=== PATIENT | male | born 1950 | race Caucasian/White ===

== ENCOUNTER 2017-03-03 08:57 | Inpatient (IN) ==
--- NOTE | 2017-03-03 10:24 | History & Physical Report ---
Date of Encounter: 03/03/17 Time of Encounter: 10:23 24 Hour HP Update - Instructions Instructions: If the History and Physical is less than 30 days old and was completed prior to A.M. admission and or procedure and has NOT been updated on calendar day of procedure please complete this update prior to performing procedure. - Update Patient reports changes in Medical Condition: No Changes in examination, assessment, or condition: No Changes in Medication: No - Attending Attestation Pt admitted for Rythmol initiation for A-Fib. Last seen by Dr. Damon nOeal as outpt. Please use this eCW encounter as full H&P. Pt reports exertional dyspnea with A-Fib, denies chest pain or dyspnea. Recent negative stress test 01/28/17, gated EF 53%. Echo 02/15/16 EF 50%, moderately dilated left atrium, no significant valvular dysfunction. Hx of A-Flutter ablation 01/2016. Will initiate Rythmol at 150mg [id number]. Obtain daily EKGs to monitor QRS. Will need monitored for 5 doses. Anticoagulated on Eliquis with no missed doses in the past 30 days. Check BMP and CBC.
[2017-03-03 10:56] LABS: Basophils % 0.5 %; Eosinophils # 0.1 K/mcL (0.0-0.6); Eosinophils % 1.4 %; Hematocrit 41.6 % (37.5-50.1); Hemoglobin 13.3 g/dL (12.9-16.9); Immature Granulocytes % 0.5 % (0-4); Lymphocytes % 22.4 %; Mean Corpuscular Hemoglobin 25.5 pg (28.0-33.3); Mean Corpuscular Volume 79.7 fL (83.0-100.0); Mean Platelet Volume 11.1 fL (9.4-12.4); Monocytes # 0.8 K/mcL (0.0-1.3); Monocytes % 8.9 %; Neutrophils # 5.8 K/mcL (1.6-8.9); Platelet Count 246 K/mcL (140-400); Red Blood Count 5.22 M/mcL (4.19-5.50); Red Cell Distribution Width 13.6 % (11.5-14.5); Segmented Neutrophils % 66.3 %
[2017-03-03 11:14] LABS: BUN/Creatinine Ratio 20 (6-26); Blood Urea Nitrogen 25 mg/dL (8-26); Carbon Dioxide 25 mEq/L (19-29); Chloride 106 mEq/L (98-109); Glucose 105 mg/dL (70-99); Osmolality,Calculated 295 (280-300); Potassium 3.7 mEq/L (3.5-4.5); Sodium 140 mEq/L (136-145); eGFR For African Americans > 60 (> 60); eGFR For Non-African Americans 56 (> 60)
[2017-03-03] MEDS: Diltiazem CD (24hr) 240 MG CAPSULE PO SCH (12:07)
--- NOTE | 2017-03-03 16:36 | Electrocardiograph Report ---
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
[2017-03-03] MEDS: APIXABAN 5 MG TABLET PO SCH (22:10)
[2017-03-04] MEDS: (Omega-3/Dha/Epa/Fish Oil [Fish Oil 1,000 Mg Softgel]) PO SCH (08:12)
[2017-03-04] MEDS: Aspirin 81 MG TAB.CHEW PO SCH (08:13)
[2017-03-04] MEDS: Diltiazem CD (24hr) 240 MG CAPSULE PO SCH (08:13)
[2017-03-04] MEDS: APIXABAN 5 MG TABLET PO SCH ×2 (08:13→22:10)
[2017-03-04] MEDS: Fenofibrate 54 MG TABLET PO SCH (08:13)
[2017-03-04] MEDS ORDERED: Diltiazem CD (24hr) 240 MG CAPSULE PO SCH (09:00)
--- NOTE | 2017-03-04 09:40 | Cardiology Progress Note ---
Date of Encounter: 03/04/17 Time of Encounter: 09:36 Assessment and Plan (1) A-fib Current Visit: Yes Status: Chronic Admitted for symptomatic A-Fib, direct admission for Rythmol initiation--150mg X3wvyle in attempt to restore sinus rhythm. Pt has received 3 doses of Rythmol--remains in A-Fib, rate controlled. Baseline EKG QRS 113ms. EKG 03/04/17 s/p 3 doses, QRS stable at 115ms. Will monitor daily EKGs. Pt needs monitored for 5 doses. 5th dose will be 10PM tonight. If still in A-Fib tomorrow AM will proceed with ROHAN/DCCV. Pt admits to missing 1 -2 doses of Eliquis in the past month, so ROHAN is warranted. R/B/A discussed. Qualifiers: Atrial fibrillation type: persistent Qualified Code(s): I48.1 - Persistent atrial fibrillation (2) Encounter for monitoring anti-arrhythmic therapy Current Visit: Yes Status: Acute As above. Discussion w patient/family: The assessment and plan as outlined above was discussed with the patient and/or family members who expressed understanding and agreement. All questions were answered. Thank you for involving us in the care of your patient. Please call with any questions. I will discuss all the above with Dr. Damon Oneal and make changes as necessary. Subjective Principal diagnosis: A-Fib Interval history: Admitted for Rythmol initiation--150mg [id number]. Pt has received 3 doses, remains in A-Fib. Denies any complaints this AM. Objective Vital Signs, Last 4 Hours Temp Pulse Resp BP Pulse Ox 03/04/17 07:05 98.1 F 83 15 130/77 97 Vital Signs Temp Pulse Resp BP Pulse Ox 03/04/17 07:05 98.1 F 83 15 130/77 97 03/04/17 04:47 98.5 F 97 16 130/85 96 03/04/17 00:37 98.3 F 90 16 124/80 95 03/03/17 22:07 88 16 129/88 96 03/03/17 19:49 97.7 F 93 16 120/89 97 03/03/17 15:11 97.5 F L 94 99 136/78 03/03/17 10:59 97.7 F 103 16 135/87 98 03/03/17 10:04 98.1 F 95 16 126/79 98 Intake and Output 03/03/17 03/04/17 03/04/17 23:59 07:59 15:59 Intake Total 240 / 240 50 / 50 Output Total 0 / 0 Balance 240 / 240 50 / 50 Intake: Oral 240 / 240 50 / 50 Output: Urine 0 / 0 Other: Meal Dinner Percent of Meal Consumed 100% # Voids 0 1 Weight 93.6 kg Patient Weight 03/04/17 23:59 Weight 93.6 kg General: Conversant, No Apparent Distress HEENT: Atraumatic, Normocephaly, Mucus Membranes Moist Neck: No JVD, Normal carotid pulses Cardiac: Other (irregularly irregular) Lungs: Normal Breath Sounds, No Wheeze, Rales, Rhonchi Neuro: Alert and responsive, No focal deficits noted Abdomen: Soft, Non-Tender Skin: No rashes noted on visualized skin Musculoskeletal: No Chest Wall Tenderness Extremities: No Clubbing, No Cyanosis, No Edema, Normal Pulses Results 03/03/17 10:41 03/03/17 10:41 Lab Results 03/03/17 03/03/17 10:41 10:41 WBC 8.7 Hgb 13.3 Hct 41.6 Plt Count 246 Sodium 140 Potassium 3.7 Chloride 106 Carbon Dioxide 25 BUN 25 Creatinine 1.28 H Glucose 105 H Calcium 10.0 Short CBC 03/03/17 Range/Units 10:41 WBC 8.7 (4.3-11.1) K/mcL Hgb 13.3 (12.9-16.9) g/dL Hct 41.6 (37.5-50.1) % Plt Count 246 (140-400) K/mcL Neutrophils # 5.8 (1.6-8.9) K/mcL BMP 03/03/17 Range/Units 10:41 Sodium 140 (136-145) mEq/L Potassium 3.7 (3.5-4.5) mEq/L Chloride 106 (98-109) mEq/L Carbon Dioxide 25 (19-29) mEq/L BUN 25 (8-26) mg/dL Creatinine 1.28 H (0.72-1.25) mg/dL Glucose 105 H (70-99) mg/dL Calcium 10.0 (8.6-10.8) mg/dL Active Medications Apixaban (Eliquis) 5 mg PO BID DELORIS Stop: 09/02/17 21:01 Last Admin: 03/04/17 08:13 Dose: 5 mg Aspirin (Aspirin) 81 mg PO DAILY [facility]OR[facility] Stop: 09/03/17 09:01 Last Admin: 03/04/17 08:13 Dose: 81 mg Atorvastatin Calcium (Lipitor) 40 mg PO DAILY [facility] Stop: 09/03/17 09:01 Last Admin: 03/04/17 08:13 Dose: 40 mg Diltiazem HCl (Cardizem Cd) 240 mg PO DAILY [facility] Stop: 09/02/17 11:04 Last Admin: 03/04/17 08:13 Dose: 240 mg Fenofibrate (Tricor) 162 mg PO DAILY [facility] Stop: 09/03/17 09:01 Last Admin: 03/04/17 08:13 Dose: 162 mg Lisinopril/HCTZ (Prinzide 10-12.5) 2 each PO DAILY [facility] Stop: 09/03/17 09:01 Last Admin: 03/04/17 08:13 Dose: 2 each Pharmacy Profile Note (Patient Taking Own Medication) 0 each PO DAILY [facility]OR[facility] Stop: 09/03/17 09:01 Last Admin: 03/04/17 08:12 Dose: Not Given Propafenone HCl (Rhythmol) 150 mg PO Q8H [facility] Stop: 09/02/17 14:01 Last Admin: 03/04/17 06:22 Dose: 150 mg - Imaging and Cardiology Stress Test: report reviewed Echo: report reviewed - EKG Interpretation EKG results cardiology: other (24 hour tele AVG HR 85, A-Fib) - VTE Reasons for not Prescribing Prophylaxis: Not indicated-Anticoagulated or INR therapeutic Consult Discharge Plan - Plan Referrals: Joe Garrison DO [Primary Care Provider] - 03/13/17 12:00 pm
--- NOTE | 2017-03-04 11:25 | Electrocardiograph Report ---
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
[2017-03-05 06:41] LABS: BUN/Creatinine Ratio 20 (6-26); Blood Urea Nitrogen 23 mg/dL (8-26); Calcium 9.9 mg/dL (8.6-10.8); Carbon Dioxide 23 mEq/L (19-29); Chloride 107 mEq/L (98-109); Glucose 109 mg/dL (70-99); Osmolality,Calculated 294 (280-300); Potassium 3.7 mEq/L (3.5-4.5); Sodium 140 mEq/L (136-145); eGFR For African Americans > 60 (> 60); eGFR For Non-African Americans > 60 (> 60)
[2017-03-05] MEDS: Aspirin 81 MG TAB.CHEW PO SCH (08:44)
[2017-03-05] MEDS: (Omega-3/Dha/Epa/Fish Oil [Fish Oil 1,000 Mg Softgel]) PO SCH (08:44)
[2017-03-05] MEDS: Diltiazem CD (24hr) 240 MG CAPSULE PO SCH (08:44)
[2017-03-05] MEDS: APIXABAN 5 MG TABLET PO SCH (08:44)
[2017-03-05] MEDS: Fenofibrate 54 MG TABLET PO SCH (08:44)
[2017-03-05] MEDS ORDERED: 0.9 % Sodium Chloride 500 ML IVC ONE (10:20)
[2017-03-05 10:30] VITALS: BP 131/88
[2017-03-05] MEDS ORDERED: Tetracaine/Benzocaine/Butamben 200MG/SPRAY (100SPY/BOT) MM SCH (10:30)
--- NOTE | 2017-03-05 10:43 | Electrocardiograph Report ---
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
[2017-03-05] MEDS: *HR* Midazolam HCl 5 MG/5 ML VIAL IVP PRN ×4 (11:15→11:30)
[2017-03-05] MEDS: *HR* FentaNYL (PF) 100 MCG/2 ML VIAL IVP PRN ×3 (11:15→11:30)
--- NOTE | 2017-03-05 11:43 | Discharge Summary ---
Date of Encounter: 03/05/17 Time of Encounter: 11:41 - Discharge Diagnosis (1) A-fib Priority: Primary Status: Chronic Comments: Admitted for symptomatic A-Fib, direct admission for Rythmol initiation--150mg [id number] in attempt to restore sinus rhythm. Pt has received 6 doses of Rythmol--remained in A-Fib, rate controlled. Pt underwent successful RANDOLPH/DCCV this AM--currently SR with HR 70s. Baseline EKG QRS 113ms. EKG 03/04/17 s/p 3 doses, QRS stable at 115ms. EKG s/p 6 doses QRS 116ms, stable. Anticoagulated on Eliquis. Missed doses in the past month which is why RANDOLPH was warranted. Pt being discharged home in stable condition. Follow-up with cardiology as outpt in 2 weeks. Qualifiers: Atrial fibrillation type: paroxysmal Qualified Code(s): I48.0 - Paroxysmal atrial fibrillation (2) Encounter for monitoring anti-arrhythmic therapy Priority: Primary Status: Acute Comments: As above. - Discharge Medications Prescriptions: Propafenone [Rhythmol] 150 mg PO Q8H #90 tablet Home Medications: Apixaban [Eliquis] 5 mg PO BID 04/11/16 [History] Atorvastatin [Lipitor] 40 mg PO DAILY 04/11/16 [History] Fenofibrate [Lofibra] 160 mg PO DAILY 04/11/16 [History] [place]-3/Dha/Epa/Fish Oil [Fish Oil 1,000 mg Softgel] 1 each PO DAILY 04/11/16 [ History] Diltiazem HCl [Diltiazem 24Hr Cd] 240 mg PO DAILY 05/23/16 [History] Aspirin 81 mg PO DAILY 03/03/17 [History] Lisinopril/Hydrochlorothiazide [Zestoretic 20-25 mg Tablet] 1 each PO DAILY 09/07 [History] Propafenone [Rhythmol] 150 mg PO Q8H #90 tablet 03/05/17 [Rx] Allergies/Adverse Reactions: Allergies No Known Allergies Allergy (Verified 03/28/16 07:57) Procedures/tests Complete & Pending: Procedures Performed prior 72 hours Category Date Time Status ECG 12 lead ECG [ECG] Routine Y 03/03/17 09:54 Completed EKG [ECG 12 lead ECG] [ECG] AM 0600 Y 03/04/17 06:00 Completed EKG [ECG 12 lead ECG] [ECG] AM 0600 Y 03/05/17 06:00 Completed EV randolph guided cardioversion Routine Y 03/05/17 08:04 Ordered Date of admission: 03/03/17 10:28 Primary care physician: Mehreen Beltran Discharging clinician: Alejandro Middleton Anticipated date of discharge: 03/05/17 - Patient Status Disposition: Home, Self-Care Condition: Good Functional capacity at discharge: independent ambulation Overall status at discharge: patient is back to baseline - Discharge Instructions Follow Up With: Joe Garrison DO [Primary Care Provider] - 03/13/17 12:00 pm - Diet and Activity Activity: increase activity as tolerated Diet: advance to your usual diet - Hospital Course Hospital course: Mr. Combs is a 66 year old male admitted for symptomatic A-Fib, direct admission for Rythmol initiation--150mg [id number] in attempt to restore sinus rhythm. Pt has received 6 doses of Rythmol--remained in A-Fib, rate controlled. Pt underwent successful RANDOLPH/DCCV this AM--currently SR with HR 70s. Baseline EKG QRS 113ms. EKG 03/04/17 s/p 3 doses, QRS stable at 115ms. EKG 03/05/17 s/p 6 doses QRS 116ms, stable. Anticoagulated on Eliquis. Missed doses in the past month which is why RANDOLPH was warranted. Pt being discharged home in stable condition. Follow-up with cardiology as outpt in 2 weeks. Pt denies any acute complaints. Labs and vitals stable. - Time Spent with Patient Total time spent providing and/or coordinating discharge services: 30 minutes Physical Examination Vital Signs, Last 4 Hours Temp Pulse Resp BP Pulse Ox 03/05/17 10:25 97.7 F 96 18 131/88 97 Vital Signs Temp Pulse Resp BP Pulse Ox 03/05/17 10:25 97.7 F 96 18 131/88 97 03/05/17 06:51 98.0 F 96 17 129/86 03/05/17 04:48 97.6 F 103 16 118/73 94 03/05/17 01:02 98.9 F 88 19 118/74 94 03/04/17 20:00 98.1 F 93 20 123/82 94 06/13/17 16:12 97.9 F 92 15 125/82 97 03/04/17 13:10 97 03/04/17 11:59 97.7 F 84 15 117/76 97 Intake and Output 03/04/17 03/05/17 03/05/17 23:59 07:59 15:59 Intake Total 100 / 100 Balance 100 / 100 Intake: Oral 100 / 100 Other: Meal npo # Voids 1 Weight 94 kg 93.894 kg Patient Weight 03/05/17 23:59 Weight 93.894 kg General: Conversant, No Apparent Distress HEENT: Atraumatic, Normocephaly, Mucus Membranes Moist Neck: No JVD, Normal carotid pulses Cardiac: Reg Rate and Rhythm, Normal S1 and S2, No Murmur Lungs: Normal Breath Sounds, No Wheeze, Rales, Rhonchi Neuro: Alert and responsive, No focal deficits noted Abdomen: Soft, Non-Tender Skin: No rashes noted on visualized skin Musculoskeletal: No Chest Wall Tenderness Extremities: No Clubbing, No Cyanosis, No Edema, Normal Pulses - VTE Reasons for not Prescribing Prophylaxis: Not indicated-Anticoagulated or INR therapeutic
--- NOTE | 2017-03-05 14:21 | Electrocardiograph Report ---
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
--- NOTE | 2017-03-05 19:44 | Electrocardiograph Report ---
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
== END 2017-03-05 15:50 | disposition home or self-care (01) | DRG 310 ==
LOC: 2NENU
PROVIDERS: ADMIT Internal Medicine Interventional Cardiology; ATTEND Internal Medicine Interventional Cardiology

== ENCOUNTER 2017-06-09 11:10 | Inpatient (IN) ==
--- NOTE | 2017-06-09 11:37 | Emergency Department Note ---
Disposition Clinical Impression: Atrial fibrillation with RVR, Elevated troponin Disposition: Admitted As Inpatient Condition: Fair Referrals: Joe Garrison DO [Primary Care Provider] - Forms: ED Satisfaction Letter Arrhythmia/Palpitations HPI - General Chief Complaint: ED Arrhythmia/Palpitations Stated Complaint: heart racing Time Seen by Provider: 06/09/17 11:18 Source: patient Mode of arrival: private vehicle Limitations: no limitations Nursing Notes Reviewed: Yes Vital Signs Reviewed: Yes - History of Present Illness HPI Narrative: 67-year-old male history of atrial fibrillation reports he had a prior ablation roughly [address] Oneal who presents to the ER due to elevated heart rate. Patient states that he has been checking his heart rate and blood pressure daily since the ablation. States this morning when I rechecked it was 155. He reports that he is felt otherwise normal without chest pain or shortness of breath. Denies syncope or near syncope. Denies a prior history of CAD, NE, DVT or PE. Does state he is still on his anticoagulation and A. fib meds. No other complaints. 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 Context: occurred during rest Arrhythmia History: atrial fibrillation Associated symptoms: Denies: chest pain, shortness of breath, syncope, near- syncope - Related Data Home Medications Medication Instructions Recorded Confirmed Apixaban [Eliquis] 5 mg PO BID 04/11/16 06/09/17 Atorvastatin [Lipitor] 40 mg PO DAILY 04/11/16 06/09/17 Fenofibrate [Lofibra] 160 mg PO DAILY 04/11/16 06/09/17 [place]-3/Dha/Epa/Fish Oil [Fish Oil 1 each PO DAILY 04/11/16 06/09/17 1,000 mg Softgel] Diltiazem HCl [Diltiazem 24Hr Cd] 240 mg PO DAILY 05/23/16 06/09/17 Aspirin 81 mg PO DAILY 03/03/17 06/09/17 Lisinopril/Hydrochlorothiazide 1 each PO DAILY 03/03/17 06/09/17 [Zestoretic 20-25 mg Tablet] Previous Rx's Medication Instructions Recorded Propafenone [Rhythmol] 150 mg PO Q8H #90 tablet 03/05/17 Allergies Allergy/AdvReac Type Severity Reaction Status Date / Time No Known Allergies Allergy Verified 06/09/17 11:14 All systems ED: reviewed and negative except as stated. Constitutional: Denies: fever Cardiovascular: Denies: chest pain, palpitations Respiratory: Denies: dyspnea Gastrointestinal: Denies: abdominal pain, nausea, vomiting Past Medical History - Past Medical History Attestation: Yes The following information was validated with the patient. Source: patient Medical history: Reports: atrial fibrillation, cancer, hyperlipidemia, hypertension Surgical history: Reports: herniorrhaphy, orthopedic, other, prostatectomy Psychiatric history: Reports: no psych history - Social History Smoking Status: Never smoker Smokeless Tobacco Status: No Alcohol use: Reports: occasionally Drug use: Reports: none Physical Exam - General Limitations: no limitations General appearance: alert, in no apparent distress - Head Head exam: atraumatic, normocephalic, normal inspection - Eye Eye exam: Present: normal appearance, EOMI - ENT ENT exam: normal exam - Neck Neck exam: Present: normal inspection, full ROM - Chest Chest inspection: Present: normal inspection, symmetric chest wall rise - Respiratory Respiratory exam: Present: normal lung sounds bilaterally - Cardiovascular Cardiovascular exam: Present: tachycardia, irregular rhythm, normal heart sounds - Abdominal Exam Abdominal exam: Present: soft, Non-Tender. Absent: tenderness - Extremities Exam Extremities exam: Present: normal inspection, full ROM - Expanded Upper Extremity Exam Shoulder exam: Present: normal inspection, full ROM Arm exam: Present: normal inspection, full ROM Elbow exam: Present: normal inspection, full ROM Forearm/Wrist exam: Present: normal inspection, full ROM Hand exam: Present: normal inspection, full ROM Vascular exam: Normal: radial pulse - Expanded Lower Extremity Exam Hip/Pelvis exam: Present: normal inspection, full ROM Upper leg exam: Present: normal inspection, full ROM Knee exam: Present: normal inspection, full ROM Lower leg exam: Present: normal inspection, full ROM Ankle exam: Present: normal inspection, full ROM Foot/toe exam: Present: normal inspection, full ROM Neurovascular/Tendon exam: Absent: motor deficit, sensory deficit - Neurological Exam Neurological exam: Present: alert, other (GCS 15. Nonfocal neurologic exam. Moves all extremities equally.) - Psychiatric Psychiatric exam: Present: normal affect, normal mood - Skin Skin exam: Present: warm, dry, intact, normal color Course Course Narrative: Patient seen and examined. He is tachycardic here to the 140s. Blood pressure stable. We will get an EKG, chest x-ray as well as labs including troponin and TSH. We will place him on a Cardizem bolus and drip. He will require admission to the hospital for further management. - Reevaluation(s) Reevaluation #1: Discussed results of imaging and lab work with the patient. His heart rate did go back into the 140s prior to starting the Cardizem drip. We will rebolus him on Cardizem and then start the drip. - Consultations Consultation #1: I discussed this patient with the on-call disability attorney Dr. Donaldson. Discussed patient's history, exam findings. They will see the patient in consult. We will admit the hospitalist service. Vital Signs Temperature 97.7 F 06/09/17 11:14 Pulse Rate 142 06/09/17 11:14 Respiratory Rate 20 06/09/17 11:14 Blood Pressure 125/88 06/09/17 11:14 O2 Sat by Pulse Oximetry 97 06/09/17 11:14 Temperature 97.7 F 06/09/17 11:14 Pulse Rate 142 06/09/17 11:14 Respiratory Rate 20 06/09/17 11:14 Blood Pressure 125/88 06/09/17 11:14 O2 Sat by Pulse Oximetry 97 06/09/17 11:14 Oxygen Delivery Oxygen Delivery Room Air Arrhythmia/Palpitations - [facility] Narrative Medical decision making narrative: 67-year-old male presents to the ER due to elevated heart rate. History of atrial fibrillation with ablation roughly 8 days ago. States he noticed his heart rate was 155 when he checked it this morning. He is hemodynamically stable here. EKG demonstrates A. fib with RVR. Chest x-ray unremarkable. Troponin is elevated at 0.17. He is currently anticoagulated. Case discussed with cardiology. Started on a Cardizem bolus and drip. Patient will be admitted to the hospitalist service for further management. - Lab Data Lab results reviewed: Yes I reviewed the patient's lab results. Result diagrams: 06/09/17 11:34 06/09/17 11:34 Lab Results 06/09/17 06/09/17 06/09/17 Range/Units 11:34 11:34 11:34 WBC 11.0 (4.3-11.1) K/mcL RBC 5.30 (4.19-5.50) M/mcL Hgb 13.6 (12.9-16.9) g/dL Hct 42.4 (37.5-50.1) % MCV 80.0 L (83.0-100.0) fL MCH 25.7 L (28.0-33.3) pg MCHC 32.1 (31.6-35.5) g/dL RDW 13.9 (11.5-14.5) % Plt Count 307 (140-400) K/mcL MPV 10.6 (9.4-12.4) fL Immature Gran % 0.8 (0-4) % Seg Neutrophils % 61.5 % Lymphocytes % 25.2 % Monocytes % 9.9 % Eosinophils % 2.1 % Basophils % 0.5 % Neutrophils # 6.8 (1.6-8.9) K/mcL Lymphocytes # 2.8 (0.6-4.6) K/mcL Monocytes # 1.1 (0.0-1.3) K/mcL Eosinophils # 0.2 (0.0-0.6) K/mcL Basophils # 0.1 (0.0-0.2) K/mcL Immature Plt Fraction 4.8 (1.1-6.1) % PT 12.5 H (9.4-12.1) Seconds INR 1.2 APTT 39.3 H (26.0-36.0) Seconds Sodium 139 (136-145) mEq/L Potassium 4.0 (3.5-4.5) mEq/L Chloride 108 (98-109) mEq/L Carbon Dioxide 23 (19-29) mEq/L BUN 26 (8-26) mg/dL Creatinine 1.24 (0.72-1.25) mg/dL Est GFR ( Amer) > 60 (> 60) Est GFR (Non-Af Amer) 58 L (> 60) BUN/Creatinine Ratio 21 (6-26) Glucose 99 (70-99) mg/dL Calculated Osmolality 293 (280-300) Calcium 10.4 (8.6-10.8) mg/dL Troponin I (0-0.03) ng/mL TSH 1.121 (0.350-4.840) mcIU/mL 06/09/17 Range/Units 11:34 WBC (4.3-11.1) K/mcL RBC (4.19-5.50) M/mcL Hgb (12.9-16.9) g/dL Hct (37.5-50.1) % MCV (83.0-100.0) fL MCH (28.0-33.3) pg MCHC (31.6-35.5) g/dL RDW (11.5-14.5) % Plt Count (140-400) K/mcL MPV (9.4-12.4) fL Immature Gran % (0-4) % Seg Neutrophils % % Lymphocytes % % Monocytes % % Eosinophils % % Basophils % % Neutrophils # (1.6-8.9) K/mcL Lymphocytes # (0.6-4.6) K/mcL Monocytes # (0.0-1.3) K/mcL Eosinophils # (0.0-0.6) K/mcL Basophils # (0.0-0.2) K/mcL Immature Plt Fraction (1.1-6.1) % PT (9.4-12.1) Seconds INR APTT (26.0-36.0) Seconds Sodium (136-145) mEq/L Potassium (3.5-4.5) mEq/L Chloride (98-109) mEq/L Carbon Dioxide (19-29) mEq/L BUN (8-26) mg/dL Creatinine (0.72-1.25) mg/dL Est GFR ( Amer) (> 60) Est GFR (Non-Af Amer) (> 60) BUN/Creatinine Ratio (6-26) Glucose (70-99) mg/dL Calculated Osmolality (280-300) Calcium (8.6-10.8) mg/dL Troponin I 0.17 H* (0-0.03) ng/mL TSH (0.350-4.840) mcIU/mL - Radiology Data Radiology results reviewed: Yes I reviewed the patient's radiology results. Chest X-Ray 06/09/17 11:28 IMPRESSION: No acute cardiopulmonary process. D/ / Shar Jeter MD / Shar Jeter MD Interpreting Provider: Shar Jeter MD - EKG Data EKG attestation: Yes I reviewed and interpreted this EKG. EKG results narrative: EKG demonstrates atrial fibrillation with a rate of 133. Left axis deviation. Prolonged QRS duration of 121. QTc 389. Nonspecific ST-T wave changes in lead 2, V6. No gross ST elevations or depressions. No acute ischemic findings. No significant changes from previous EKG dated 06/02/17. Carrie - Carrie Situation: Demographics, MOA Background: Presenting Complaint, Relevant PMH, Meds, & Allergies Assessment: Vital Signs, Course and respsone to treatment, Exam Concerns, Patient/Family Expectation, Pertinant Lab Results, Outstanding Labs Recommendation: Barrier(s) to disposition, Recommendation based on pending studies, treatments, or consults Carrie Report Given to: Dr. Miguelito Butler Repor Time: 13:15 Attestation Statement - Attestation Attestation: I examined this patient and my medical decision-making was reviewed with the Resident Physician. I agree with the documented findings, disposition and treatment plan as described except to the extent set forth below. Patient in the ED with a chief complaint of a high heart rate. Patient states he felt fine but he checked his heart rate today to the 150s so he thought he should be evaluated. Patient is status post cardiac ablation for atrial fibrillation 1 week ago. Denies any chest pain or difficulty breathing. Exam shows some laying in bed in no acute distress. Heart tachycardia and irregularly irregular. Plan. Cardiac workup. Cardizem drip. Has been discussed with cardiology. Troponin is elevated. Aspirin given. Likely secondary to his prolonged elevated heart rate. We will admit to medicine with cardiology consult. 40 minutes of critical care exclusive of separately little procedures.
[2017-06-09 11:41] LABS: Basophils # 0.1 K/mcL (0.0-0.2); Basophils % 0.5 %; Eosinophils # 0.2 K/mcL (0.0-0.6); Eosinophils % 2.1 %; Hematocrit 42.4 % (37.5-50.1); Hemoglobin 13.6 g/dL (12.9-16.9); Immature Granulocytes % 0.8 % (0-4); Immature Platelets 4.8 % (1.1-6.1); Lymphocytes # 2.8 K/mcL (0.6-4.6); Lymphocytes % 25.2 %; Mean Corpuscular HGB Conc 32.1 g/dL (31.6-35.5); Mean Corpuscular Hemoglobin 25.7 pg (28.0-33.3); Mean Platelet Volume 10.6 fL (9.4-12.4); Monocytes # 1.1 K/mcL (0.0-1.3); Monocytes % 9.9 %; Neutrophils # 6.8 K/mcL (1.6-8.9); Platelet Count 307 K/mcL (140-400); Red Cell Distribution Width 13.9 % (11.5-14.5); Segmented Neutrophils % 61.5 %
[2017-06-09 11:47] LABS: INR 1.2; Prothrombin Time 12.5 Seconds (9.4-12.1)
[2017-06-09 11:50] LABS: Activated Partial Thrombo Time 39.3 Seconds (26.0-36.0)
[2017-06-09 11:54] LABS: BUN/Creatinine Ratio 21 (6-26); Blood Urea Nitrogen 26 mg/dL (8-26); Calcium 10.4 mg/dL (8.6-10.8); Carbon Dioxide 23 mEq/L (19-29); Chloride 108 mEq/L (98-109); Glucose 99 mg/dL (70-99); Osmolality,Calculated 293 (280-300); Sodium 139 mEq/L (136-145); eGFR For African Americans > 60 (> 60); eGFR For Non-African Americans 58 (> 60)
[2017-06-09 12:31] LABS: Thyroid Stimulating Hormone 1.121 mcIU/mL (0.350-4.840)
--- NOTE | 2017-06-09 15:42 | Cardiology Consult Note ---
<Kymberly Brooks Diaz - Last Filed: 06/09/17 16:03> Date of Encounter: 06/09/17 Time of Encounter: 15:30 Assessment and Plan (1) A-fib Current Visit: Yes Status: Chronic Presents with atrial fibrillation/flutter with RVR, HR 140's. Currently asymptomatic. Recent successful cryoablation of atrial fib on 06/02/17. ECG shows atrial flutter 133 BPM QRS 121ms QT/QTc 311,389 ms Reports compliance with medications including rythmol and eliquis--denies missed doses since ablation or in the past 30 days. Keep NPO after MN except medications, anticipate possible DCCV in AM. Recommend EP consult, will discuss with Dr. Damon Oneal in AM. Continue cardizem gtt for rate control, titrate to keep HR less than 100. Continue rythmol and eliquis. Qualifiers: Atrial fibrillation type: paroxysmal Qualified Code(s): I48.0 - Paroxysmal atrial fibrillation (2) Elevated troponin Current Visit: Yes Status: Acute Troponin 0.17, likely secondary to demand ischemia in the setting of afib with RVR and recent ablation. No ischemic ECG changes noted, patient is chest pain free. Recent negative nuclear stress January 2017. Continue to trend troponin for a total of 3. Discussion w patient/family: The assessment and plan as outlined above was discussed with the patient and/or family members who expressed understanding and agreement. All questions were answered. Thank you for involving us in the care of your patient. Please call with any questions. The patient will be discussed and reviewed with Dr. Donaldson; changes to be made accordingly. History of Present Illness Consult date: 06/09/17 Requesting physician: David Ashley Consult reason: Afib Chief complaint: Afib History of present illness: Mr. Combs is a 67 year old male with PMHx significant for afib s/p recent cryoablation, HTN, HLD who presented to the ED with elevated heart rates. Underwent successful cryoablation of atrial fibrillation on 06/02/[address] Damon Oneal due to symptomatic PAF and failed antiarrhythmic therapy. He has underwent multiple cardioversions for afib in the past several months. He reports he has been taking his HR and BP everyday and HR have been controlled. Today, HR was elevated in the 150's which prompted ED evaluation. He denies symptoms including palpitations, fatigue, or shortness of breath. Upon arrival to ED, ECG demonstrated atrial flutter with RVR and was given IV cardizem bolus and then started on IV cardizem gtt. He reports he has not missed any doses of medications including rhythmol or eliquis. Recent CV testing: Ablation 06/02/17: successful cryoablation of atrial fibrillation Nuclear stress 01/28/17: perfusion imaging was negative for ischemia or infarct , gated EF=53% TTE 02/14/17: LVEF 50%, moderately dilated LA, normal wall motion. Past Med Surg Social Fam HX - Past Medical History Attestation: Yes The following information was validated with the patient. Source: patient Medical history: atrial fibrillation, cancer, hyperlipidemia, hypertension Psychiatric history: no psych history - Past Surgical History Surgical History: herniorrhaphy, orthopedic, other, prostatectomy, other ( cyroablation 06/02/17) - Social History Smoking Status: Never smoker Smokeless Tobacco Status: No Alcohol use: occasionally Drug use: none - Family History Mother Living Status: Still Living Hx Family Cardiac Disorders: Yes Medications and Allergies Apixaban [Eliquis] 5 mg PO BID 04/11/16 [History] Atorvastatin [Lipitor] 40 mg PO DAILY 04/11/16 [History] Fenofibrate [Lofibra] 160 mg PO DAILY 04/11/16 [History] [place]-3/Dha/Epa/Fish Oil [Fish Oil 1,000 mg Softgel] 1 each PO DAILY 04/11/16 [ History] Diltiazem HCl [Diltiazem 24Hr Cd] 240 mg PO DAILY 05/23/16 [History] Aspirin 81 mg PO DAILY 03/03/17 [History] Lisinopril/Hydrochlorothiazide [Zestoretic 20-25 mg Tablet] 1 each PO DAILY 09/07 [History] Propafenone [Rhythmol] 150 mg PO Q8H #90 tablet 03/05/17 [Rx] 3 Allergy/AdvReac Type Severity Reaction Status Date / Time No Known Allergies Allergy Verified 06/09/17 11:14 All Systems Review: A 10-system review of systems was performed and is negative for pertinent findings except as documented above in the HPI. - Cardiovascular Cardiovascular: as per HPI Physical Examination Vital Signs, Last 4 Hours Resp BP 06/09/17 14:10 18 119/70 General: Conversant, No Apparent Distress HEENT: Atraumatic Cardiac: Other (irregularly irregular) Lungs: Normal Breath Sounds Neuro: Alert and responsive Abdomen: Soft Skin: No rashes noted on visualized skin Musculoskeletal: No Chest Wall Tenderness Extremities: No Edema, Normal Pulses Results 06/09/17 11:34 06/09/17 11:34 - Imaging and Cardiology Stress Test: report reviewed Echo: report reviewed - EKG Interpretation EKG results cardiology: personally reviewed Consult Discharge Plan - Plan Referrals: Damon Oneal MD [Partnered Physician] - 06/24/17 9:15 am Joe Garrison DO [Primary Care Provider] - 06/19/17 1:30 pm <Denice Donaldson - Last Filed: 06/10/17 12:13> Date of Encounter: 06/10/17 Assessment and Plan Discussion w patient/family: The assessment and plan as outlined above was discussed with the patient and/or family members who expressed understanding and agreement. All questions were answered. Thank you for involving us in the care of your patient. Please call with any questions. History of Present Illness History of present illness: Mr. Combs is a 67 year old male All Systems Review: A 10-system review of systems was performed and is negative for pertinent findings except as documented above in the HPI. Results 06/10/17 01:26 06/10/17 01:26 Lab Results 06/09/17 06/10/17 06/10/17 18:11 01:26 01:26 WBC Hgb Hct Plt Count INR APTT Sodium Potassium Chloride Carbon Dioxide BUN Creatinine Glucose Calcium Magnesium 1.6 Total Bilirubin AST ALT Alkaline Phosphatase Troponin I 0.13 H* 0.15 H* 06/10/17 06/10/17 06/10/17 01:26 01:26 01:26 WBC 9.1 Hgb 13.2 Hct 41.0 Plt Count 265 INR 1.2 APTT 37.0 H Sodium 139 Potassium 3.7 Chloride 105 Carbon Dioxide 25 BUN 25 Creatinine 1.34 H Glucose 171 H Calcium 9.4 Magnesium Total Bilirubin 0.4 AST 12 ALT 16 Alkaline Phosphatase 39 Troponin I 06/10/17 08:02 WBC Hgb Hct Plt Count INR APTT Sodium Potassium Chloride Carbon Dioxide BUN Creatinine Glucose Calcium Magnesium Total Bilirubin AST ALT Alkaline Phosphatase Troponin I 0.13 H* - Attending Attestation I examined this patient and my medical decision-making was reviewed with the Resident Physician. I agree with the documented findings, disposition and treatment plan. Recent cryoablation for atrial fibrillation. Continue rhythmol and eliquis. Will have EP evaluate patient for further recommendations.
[2017-06-09] MEDS ORDERED: *HR* Morphine 2 MG/ML SYRINGE IVP PRN (16:40)
[2017-06-09] MEDS ORDERED: *HR* HYDROcodone/Acet 5/325 mg TABLET PO PRN (16:40)
[2017-06-09] MEDS ORDERED: Acetaminophen 325 MG TABLET PO PRN (16:40)
[2017-06-09] MEDS ORDERED: Naloxone 0.4 MG/ML INJ IVP PRN (16:40)
[2017-06-09] MEDS ORDERED: Ondansetron 4 MG/2 ML VIAL IVP PRN (16:40)
[2017-06-09] MEDS: Pantoprazole 40 MG VIAL IVP SCH (18:04)
--- NOTE | 2017-06-09 18:14 | Event Note ---
Date of Encounter: 06/09/17 Time of Encounter: 18:00 I personally interviewed and examined this pt. I agree with the findings, assessment and plan of TATE Abdalla. Cardiology input appreciated. Await final reccs. Pt remains on cardizem drip, BP stable. Pt is on anticoag and currently asymptomatic.
--- NOTE | 2017-06-09 20:01 | Internal Med History&Physical ---
Date of Encounter: 06/09/17 Time of Encounter: 17:00 Assessment and Plan (1) Atrial fibrillation with RVR Current visit: Yes Status: Acute Patient presents with acute on chronic A. fib with RVR with HR ranging from 130' s to 140's. Patient reports having ablation on 06/02/17 and previous ablation in February 2017. Patient reports he is compliant in taking his Eliquis, cardizem, lisinopril/hydrochlorothiazide, Rhythmol, Lipitor, and fenofibrate. Cardiology consult ordered with recommendation to keep patient NPO at midnight for possible a.m. procedure. Patient placed on cardizem drip to be titrated to keep HR <100 bpm. Will continue patient's Eliquis and Rhythmol. (2) Elevated troponin Current visit: Yes Status: Acute Patient presents with acute elevated troponin of 0.17 which is most likely due to demand ischemia from current A. fib with RVR. Patient currently denies any chest pain or shortness of breath. There are currently no ECG changes which suggest ischemia. Secondary troponin 0.13. Will trend x1. (3) Prostate cancer Current visit: Yes Status: Resolved Patient presents with history of prostate cancer that he reports is currently resolved/stable. (4) HLD (hyperlipidemia) Current visit: Yes Status: Chronic Patient presents with history of chronic hyperlipidemia. Lipid panel ordered and will continue patient's Lipitor and fenofibrate. Qualifiers: Hyperlipidemia type: pure hypercholesterolemia Qualified Code(s): E78.00 - Pure hypercholesterolemia, unspecified; E78.0 - Pure hypercholesterolemia (5) HTN (hypertension) Current visit: Yes Status: Chronic Patient presents with history of chronic hypertension. Will monitor patient and vital signs and continue patient's lisinopril/hydrochlorothiazide and Cardizem. Qualifiers: Hypertension type: essential hypertension Qualified Code(s): I10 - Essential (primary) hypertension (6) DVT prophylaxis Current visit: Yes Status: Acute Patient to be placed on DVT prophylaxis due to current admission protocol and bed rest status. Will continue patient's Eliquis for anticoagulation and DVT prophylaxis. Internal Medicine - H&P: HPI Chief complaint: Heart Arrhythmia/Palpitations Admitted From: Emergency Dept Plans for Post Hospital Care: Home History of present illness: Mr. Combs is a 67 year old male with medical history of atrial fibrillation, prostate cancer which is resolved, hyperlipidemia, and hypertension reports from the ED with chief complaint of atrial fibrillation and arrhythmia with palpitations. Patient has previous history of atrial fibrillation and reports ablation roughly [address] Oneal. Patient denies chest pain or shortness of breath, or prior history of CAD, IA, DVT, or PE. Patient reports he is been compliant with all his medications. Patient also denies abdominal pain, nausea, vomiting, shortness of breath, recent illness, fever, chills, changes in vision, lightheadedness, or dizziness. Mr. Combs denies ever smoking. Patient currently takes Eliquis for anticoagulation and Rythmol for rate control. On admission today, patient's vital signs include temperature of 97.7F, heart rate of 142 bpm, respiratory rate of 20, BP of 125/88, and SPO2 97% on room air. On examination, patient is currently in atrial fibrillation with RVR, lungs are clear on auscultation bilaterally, there is no pedal edema present. Patient currently denies chest pain or shortness of breath. Single view CXR today shows no acute cardiopulmonary process. Patient recently had ROHAN and nuclear stress test performed prior to ablation. Patient reports history of 2 ablations with one being in January or February and the other one last week. Patient is currently hemodynamically stable and reports no acute distress. Information taken from patient, family, chart review, and previous medical records and imaging. Mr. Combs is at high risk for cardiac event based on current symptoms, history of atrial fibrillation, and risk factors and will be placed inpatient status. Time spent with patient greater than 40 minutes. Past Med Surg Social Fam HX - Past Medical History Source: patient, old records reviewed Medical history: atrial fibrillation, cancer (Prostate), hyperlipidemia, hypertension Psychiatric history: no psych history - Past Surgical History Surgical History: herniorrhaphy, orthopedic, other (Right shoulder), prostatectomy, other - Social History Smoking Status: Never smoker Smokeless Tobacco Status: No Alcohol use: occasionally Drug use: none Occupational status: retired Current living situation: Home, With Family Activity Level: Independent ambulation Recent Out of Country Travel Within the Last 8 Weeks: No Exposure or Possible Exposure to Illness During Travel: No - Family History Mother Race: Family Member Ethnicity: Non- Living Status: Still Living Hx Family Cardiac Disorders: Yes (CAD) Hx Family Endocrine Disorder: Yes (DM) Father Race: Family Member Ethnicity: Non- Living Status: Age at : 79 Cause of : Brain aneurysm Hx Family Cardiac Disorders: Yes (Brain aneurysm, CAD, Stroke, HTN) Brother Race: Family Member Ethnicity: Non- Living Status: Age at : 64 Cause of : Lung cancer Hx Family Cancer: Yes (Lung) Sister Race: Family Member Ethnicity: Non- Living Status: Still Living Hx Family Autoimmune Disorders: Yes (Lupus) Internal Medicine - H&P: Meds Apixaban [Eliquis] 5 mg PO BID 04/11/16 [History] Atorvastatin [Lipitor] 40 mg PO DAILY 04/11/16 [History] Fenofibrate [Lofibra] 160 mg PO DAILY 04/11/16 [History] [place]-3/Dha/Epa/Fish Oil [Fish Oil 1,000 mg Softgel] 1 each PO DAILY 04/11/16 [ History] Diltiazem HCl [Diltiazem 24Hr Cd] 240 mg PO DAILY 05/23/16 [History] Aspirin 81 mg PO DAILY 03/03/17 [History] Lisinopril/Hydrochlorothiazide [Zestoretic 20-25 mg Tablet] 1 each PO DAILY 09/07 [History] Propafenone [Rhythmol] 150 mg PO Q8H #90 tablet 03/05/17 [Rx] 3 Allergy/AdvReac Type Severity Reaction Status Date / Time No Known Allergies Allergy Verified 06/09/17 11:14 All Systems PM: A 10-system review of systems was performed and is negative for pertinent findings except as documented above in the HPI. - Constitutional Constitutional: no chills, no fever(s), no night sweats - EENT Eyes: no change in vision, no discharge, no pain, no photophobia Ears: no ear discharge, no ear pain, no tinnitus Nose, mouth and throat: no dysphagia, no nasal discharge, no neck pain, no sore throat - Breasts Breasts: as per HPI - Cardiovascular Cardiovascular ROS IM: as per HPI, irregular heart rhythm - Respiratory Respiratory: no cough, no dyspnea, no wheezing, no excessive phlegm production - Gastrointestinal Gastrointestinal: no abdominal pain, no diarrhea, no hematemesis, no hematochezia, no melena, no nausea, no vomiting - Genitourinary Genitourinary ROS male: as per HPI - Musculoskeletal Musculoskeletal ROS IM: no numbness, no tingling - Integumentary Integumentary IM: no rash, no unusual bruising - Neurological Neurological ROS: no confusion, no convulsions, no focal weakness, no numbness, no tingling, no tremor(s) - Psychiatric Psychiatric: as per HPI - Endocrine Endocrine IM: as per HPI - Hematologic/Lymphatic Hematologic/Lymphatic: no easy bruising - Allergic/Immunologic Allergic/Immunologic: as per HPI - Constitutional Vitals: Temp Pulse Resp BP Pulse Ox 97.9 F 108 20 121/89 95 06/09/17 19:00 06/09/17 19:00 06/09/17 19:00 06/09/17 19:00 06/09/17 19:00 General appearance: Present: cooperative, disheveled, A&O X 3, pleasant, no acute distress, obese, answers questions appropriately - Head Head exam: Present: atraumatic, normocephalic - Eye Eye exam: Present: PERRL, conjuntiva pink, sclera anicteric Pupils: Present: PERRL - ENT ENT exam: Present: normal exam, normal external ear exam - Neck Neck exam general surgery: Present: normal inspection, supple, trachea midline. Absent: lymphadenopathy - Respiratory Respiratory exam: Present: CTAB. Absent: accessory muscle use, rales, rhonchi, wheezes - Cardiovascular Cardiovascular exam: Present: irregular rhythm - GI/Abdominal GI/Abdominal exam: Present: normal bowel sounds, soft, no peritoneal signs. Absent: distended, tenderness - Rectal Rectal exam: Present: deferred - Additional comments: exam deferred. - Extremities Exam Extremities exam: Present: warm, radial pulses palpable and symmetrical. Absent : calf tenderness, cyanotic, pedal edema - Back Exam Back exam: Present: normal inspection - Neurological Exam Neurological exam: Present: CN II-XII intact, oriented X3, no focal deficits. Absent: pronater drift, facial droop, speech deficit - Psychiatric Psychiatric exam: Present: normal affect, normal mood - Skin Skin exam: Present: dry, intact Internal Med - H&P Results - Labs CBC & Chem 7: 06/09/17 11:34 06/09/17 11:34 Labs: Cardiac Enzymes 06/09/17 Range/Units 18:11 Troponin I 0.13 H* (0-0.03) ng/mL - Diagnostic Studies Chest x-ray Additional comments: Impressions Chest X-Ray 06/09/17 11:28 IMPRESSION: No acute cardiopulmonary process. D/ / Shar Jeter MD / Shar Jeter MD Interpreting Provider: Shar Jeter MD
[2017-06-09] MEDS: APIXABAN 5 MG TABLET PO SCH (21:37)
[2017-06-10 02:19] LABS: Basophils % 0.4 %; Eosinophils # 0.2 K/mcL (0.0-0.6); Eosinophils % 2.4 %; Hemoglobin 13.2 g/dL (12.9-16.9); Immature Granulocytes % 0.5 % (0-4); Lymphocytes # 2.1 K/mcL (0.6-4.6); Lymphocytes % 22.6 %; Mean Corpuscular HGB Conc 32.2 g/dL (31.6-35.5); Mean Corpuscular Volume 80.9 fL (83.0-100.0); Monocytes # 0.8 K/mcL (0.0-1.3); Monocytes % 8.3 %; Platelet Count 265 K/mcL (140-400); Red Blood Count 5.07 M/mcL (4.19-5.50); Red Cell Distribution Width 14.1 % (11.5-14.5); Segmented Neutrophils % 65.8 %
[2017-06-10 02:26] LABS: INR 1.2; Prothrombin Time 13.2 Seconds (9.4-12.1)
[2017-06-10 02:40] LABS: Alanine Aminotransferase 16 Units/L (0-55); Albumin 3.6 g/dL (3.5-5.0); Albumin/Globulin Ratio 1.2 (1.1-2.2); Alkaline Phosphatase 39 Units/L (38-126); Aspartate Amino Transferase 12 Units/L (5-34); BUN/Creatinine Ratio 19 (6-26); Bilirubin,Total 0.4 mg/dL (0.2-1.2); Blood Urea Nitrogen 25 mg/dL (8-26); Calcium 9.4 mg/dL (8.6-10.8); Carbon Dioxide 25 mEq/L (19-29); Chloride 105 mEq/L (98-109); Cholesterol 181 mg/dL (< 200); Glucose 171 mg/dL (70-99); HDL Cholesterol 26 mg/dL (40-59); LDL Cholesterol,Calculated 101 mg/dL (0-99); Osmolality,Calculated 296 (280-300); Potassium 3.7 mEq/L (3.5-4.5); Sodium 139 mEq/L (136-145); Total Protein 6.6 g/dL (6.0-8.3); Triglycerides 272 mg/dL (< 150); eGFR For African Americans > 60 (> 60); eGFR For Non-African Americans 53 (> 60)
[2017-06-10] MEDS: Fenofibrate 54 MG TABLET PO SCH (08:51)
[2017-06-10] MEDS: APIXABAN 5 MG TABLET PO SCH ×2 (08:51→20:36)
[2017-06-10] MEDS: Aspirin 81 MG TAB.CHEW PO SCH (08:51)
[2017-06-10] MEDS: Pantoprazole 40 MG VIAL IVP SCH (08:51)
--- NOTE | 2017-06-10 10:23 | Electrophysiology Consult Note ---
Date of Encounter: 06/10/17 Time of Encounter: 10:20 Assessment and Plan (1) Atrial fibrillation and flutter Current Visit: Yes Status: Acute Presents with atrial fibrillation/flutter with RVR, HR 140's. Currently asymptomatic. Recent successful cryoablation of atrial fib on 06/02/17. ECG shows atrial flutter 133 BPM QRS 121ms QT/QTc 311,389 ms. Reports compliance with medications including rythmol and eliquis--denies missed doses since ablation or in the past 30 days. Currently on cardizem gtt at 10mg/hr, HR 80s-low 100s A-Flutter. K 3.7, Mag 1.6--replace. TSH 1.121. Discussed with Dr. Damon Oneal, who recommends increasing Rythmol to 225mg [id number]. Monitor daily EKGs for QRS monitoring. NPO after midnight. If still in A-Flutter tomorrow, plan for DCCV. No ROHAN warranted since he has not missed any Eliquis doses in the past 30 days. Obtain EKG now as well. Appears to be in atypical A-Flutter. Re-evaluate in AM. (2) Elevated troponin Current Visit: Yes Status: Acute Troponin 0.17, 0.13, 0.15, 0.13 likely secondary to demand ischemia in the setting of afib with RVR and recent ablation. Flat and adynamic. No ischemic ECG changes noted, patient is chest pain free. Recent negative nuclear stress January 2017. Discussion w patient/family: The assessment and plan as outlined above was discussed with the patient and/or family members who expressed understanding and agreement. All questions were answered. Thank you for involving us in the care of your patient. Please call with any questions. I will discuss all the above with Dr. Damon Oneal and make changes as necessary. History of Present Illness Consult date: 06/10/17 Requesting physician: Kymbrely Brooks Consult reason: A-Fib/Flutter Chief complaint: palpitations History of present illness: Mr. Combs is a 67 year old male with PMHx significant for afib s/p recent cryoablation, HTN, HLD who presented to the ED with elevated heart rates. Underwent successful cryoablation of atrial fibrillation on 06/02/[address] Damon Oneal due to symptomatic PAF and failed antiarrhythmic therapy. He has underwent multiple cardioversions for afib in the past several months. He reports he has been taking his HR and BP everyday and HR have been controlled. Yesterday, HR was elevated in the 150's which prompted ED evaluation. He denies symptoms including palpitations, fatigue, or shortness of breath. Upon arrival to ED, ECG demonstrated atrial flutter with RVR and was given IV cardizem bolus and then started on IV cardizem gtt. He reports he has not missed any doses of medications including rhythmol or eliquis. Currently on Cardizem gtt 10mg/hr with HR 80s-low 100s, A-Flutter. EP consulted for further recommendations. Past Med Surg Social Fam HX - Past Medical History Medical history: atrial fibrillation, cancer (Prostate), hyperlipidemia, hypertension Psychiatric history: no psych history - Past Surgical History Surgical History: herniorrhaphy, orthopedic, other (Right shoulder), prostatectomy, other - Social History Smoking Status: Never smoker Smokeless Tobacco Status: No Alcohol use: occasionally Drug use: none - Family History Mother Race: Family Member Ethnicity: Non- Living Status: Still Living Hx Family Cardiac Disorders: Yes (CAD) Hx Family Endocrine Disorder: Yes (DM) Father Race: Family Member Ethnicity: Non- Living Status: Age at : 79 Cause of : Brain aneurysm Hx Family Cardiac Disorders: Yes (Brain aneurysm, CAD, Stroke, HTN) Brother Race: Family Member Ethnicity: Non- Living Status: Age at : 64 Cause of : Lung cancer Hx Family Cancer: Yes (Lung) Sister Race: Family Member Ethnicity: Non- Living Status: Still Living Hx Family Autoimmune Disorders: Yes (Lupus) Medications and Allergies Apixaban [Eliquis] 5 mg PO BID 04/11/16 [History] Atorvastatin [Lipitor] 40 mg PO DAILY 04/11/16 [History] Fenofibrate [Lofibra] 160 mg PO DAILY 04/11/16 [History] [place]-3/Dha/Epa/Fish Oil [Fish Oil 1,000 mg Softgel] 1 each PO DAILY 04/11/16 [ History] Diltiazem HCl [Diltiazem 24Hr Cd] 240 mg PO DAILY 05/23/16 [History] Aspirin 81 mg PO DAILY 03/03/17 [History] Lisinopril/Hydrochlorothiazide [Zestoretic 20-25 mg Tablet] 1 each PO DAILY 09/07 [History] Propafenone [Rhythmol] 150 mg PO Q8H #90 tablet 03/05/17 [Rx] 3 Allergy/AdvReac Type Severity Reaction Status Date / Time No Known Allergies Allergy Verified 06/09/17 11:14 All Systems Review: A 10-system review of systems was performed and is negative for pertinent findings except as documented above in the HPI. Physical Examination Vital Signs, Last 4 Hours Temp Pulse Resp BP Pulse Ox 06/10/17 07:00 98.2 F 78 17 131/80 96 Vital Signs Temp Pulse Resp BP Pulse Ox 06/10/17 07:00 98.2 F 78 17 131/80 96 06/10/17 05:00 98 F 91 20 115/77 95 06/10/17 00:00 98 F 88 20 109/76 95 06/09/17 20:17 95 06/09/17 19:00 97.9 F 108 20 121/89 95 06/09/17 15:52 97.7 F 54 16 122/78 98 06/09/17 14:10 18 119/70 06/09/17 13:25 103 18 108/83 94 06/09/17 11:14 97.7 F 142 20 125/88 97 Intake and Output 06/09/17 06/10/17 06/10/17 23:59 07:59 15:59 Intake Total 0 / 0 125 / 125 Output Total 0 / 0 0 / 0 Balance 0 / 0 125 / 125 Intake: IV Fluids 125 / 125 Cardizem 125 MG In 125 / 125 Dextrose 5% 100 ML @ 10 MG/HR 10 mls/hr IVC . [id number] [facility] Rx#: [id number] Oral 0 / 0 0 / 0 Output: Urine 0 / 0 0 / 0 Other: Weight 92.5 kg 93 kg Patient Weight 06/10/17 23:59 Weight 93 kg General: Conversant, No Apparent Distress HEENT: Atraumatic, Normocephaly, Mucus Membranes Moist Neck: No JVD, Normal carotid pulses Cardiac: Other (irregular) Lungs: Normal Breath Sounds, No Wheeze, Rales, Rhonchi Neuro: Alert and responsive, No focal deficits noted Abdomen: Soft, Non-Tender Skin: No rashes noted on visualized skin Musculoskeletal: No Chest Wall Tenderness Extremities: No Clubbing, No Cyanosis, No Edema, Normal Pulses Results 06/10/17 01:26 06/10/17 01:26 Lab Results 06/09/17 06/10/17 06/10/17 18:11 01:26 01:26 WBC Hgb Hct Plt Count INR APTT Sodium Potassium Chloride Carbon Dioxide BUN Creatinine Glucose Calcium Magnesium 1.6 Total Bilirubin AST ALT Alkaline Phosphatase Troponin I 0.13 H* 0.15 H* 06/10/17 06/10/17 06/10/17 01:26 01:26 01:26 WBC 9.1 Hgb 13.2 Hct 41.0 Plt Count 265 INR 1.2 APTT 37.0 H Sodium 139 Potassium 3.7 Chloride 105 Carbon Dioxide 25 BUN 25 Creatinine 1.34 H Glucose 171 H Calcium 9.4 Magnesium Total Bilirubin 0.4 AST 12 ALT 16 Alkaline Phosphatase 39 Troponin I 06/10/17 08:02 WBC Hgb Hct Plt Count INR APTT Sodium Potassium Chloride Carbon Dioxide BUN Creatinine Glucose Calcium Magnesium Total Bilirubin AST ALT Alkaline Phosphatase Troponin I 0.13 H* - EKG Interpretation EKG results cardiology: other (24 hr tele AVG HR 88, A-Flutter) Consult Discharge Plan - Plan Referrals: Damon Oneal MD [Partnered Physician] - 06/24/17 9:15 am Joe Garrison DO [Primary Care Provider] - 06/19/17 1:30 pm
[2017-06-10] MEDS ORDERED: Magnesium Oxide 400 MG TABLET PO ONE (10:33)
--- NOTE | 2017-06-10 18:09 | Electrocardiograph Report ---
[address] [address] Test Date: 2017-06-10 Pat Name: Osmany Combs Department: 111 Room: 2N5 Gender: M [employer]: KER[place] : 1950 Requested By: Alejandro Middleton Order Number: [id number] Reading MD: Ama Oneal Measurements Intervals [place] Rate: 81 P: IN: 0 QRS: -34 QRSD: 121 T: 81 QT: 409 QTc: 446 Interpretive Statements ATRIAL FLUTTER/TACHYCARDIA MARKED LEFT AXIS DEVIATION MODERATE INTRAVENTRICULAR CONDUCTION DELAY NONSPECIFIC T-WAVE ABNORMALITY Electronically Signed On 06-10-2017 18:08:39 EDT by Ama Oneal
--- NOTE | 2017-06-10 18:30 | Electrocardiograph Report ---
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
--- NOTE | 2017-06-10 19:40 | Internal Med Progress Note ---
Date of Encounter: 06/10/17 Time of Encounter: 10:00 - Assessment and plan (1) Atrial flutter with rapid ventricular response Current Visit: No Status: Acute Assessment and plan: Heart rate is controlled on Cardizem drip. Cardiology on case and plan for medication rhythm control, if failed, consider DCCV. On Eliquis for AC. (2) Elevated troponin Current Visit: Yes Status: Acute Assessment and plan: Probably demand ischemia due to tachycardia. Troponin level trended down now. (3) Prostate cancer Current Visit: Yes Status: Resolved (4) HLD (hyperlipidemia) Current Visit: Yes Status: Chronic Assessment and plan: Continue home medications Qualifiers: Hyperlipidemia type: pure hypercholesterolemia Qualified Code(s): E78.00 - Pure hypercholesterolemia, unspecified; E78.0 - Pure hypercholesterolemia (5) HTN (hypertension) Current Visit: Yes Status: Chronic Assessment and plan: Continue home medications Qualifiers: Hypertension type: essential hypertension Qualified Code(s): I10 - Essential (primary) hypertension (6) DVT prophylaxis Current Visit: Yes Status: Acute Assessment and plan: Patient is on Eliquis. - Time Spent With Patient 25 - 35 minutes - Subjective Interval history: Patient is a 67-year-old male admitted for A. fib/ A flutter RVR. Past medical history is significant for A. fib on Eliquis, prostate cancer, hyperlipidemia, hypertension. Patient was seen and examined. Heart rate is controlled by Cardizem drip. Still A. fib. Patient denies chest pain or palpitation. The patient denies shortness of breath. Vital signs stable. Cardiology on case and plan for DCCV if failed medication rhythm control. - Constitutional Vitals: Temp Pulse Resp BP Pulse Ox 98.1 F 84 17 112/64 98 06/10/17 15:00 06/10/17 15:00 06/10/17 15:00 06/10/17 15:00 06/10/17 15:00 General appearance: Present: cooperative, disheveled, A&O X 3, pleasant, no acute distress, obese, answers questions appropriately - Head Head exam: Present: atraumatic, normocephalic - Eye Eye exam: Present: PERRL, conjuntiva pink, sclera anicteric Pupils: Present: PERRL - Neck Neck exam general surgery: Present: supple, trachea midline. Absent: lymphadenopathy - Respiratory Respiratory exam: Present: CTAB. Absent: accessory muscle use, rales, rhonchi, wheezes - Cardiovascular Cardiovascular exam: Present: irregular rhythm, +S1, +S2. Absent: diastolic murmur, gallop, rubs, systolic murmur - GI/Abdominal GI/Abdominal exam: Present: normal bowel sounds, soft, no peritoneal signs. Absent: distended, tenderness - Extremities Exam Extremities exam: Present: warm, radial pulses palpable and symmetrical. Absent : calf tenderness, cyanotic, pedal edema - Neurological Exam Neurological exam: Present: CN II-XII intact, oriented X3, no focal deficits. Absent: pronater drift, facial droop, speech deficit - Skin Skin exam: Present: dry, intact Internal Medicine: Result - Labs CBC & Chem 7: 06/10/17 01:26 06/10/17 01:26 - ABG Interpretation ABG results: PT/INR, D-dimer PT 13.2 Seconds (9.4-12.1) H 06/10/17 01:26 Consult Discharge Plan - Plan Referrals: Damon Oneal MD [Partnered Physician] - 06/24/17 9:15 am Joe Garrison DO [Primary Care Provider] - 06/19/17 1:30 pm
[2017-06-11 06:35] LABS: BUN/Creatinine Ratio 21 (6-26); Basophils % 0.4 %; Blood Urea Nitrogen 28 mg/dL (8-26); Calcium 9.7 mg/dL (8.6-10.8); Carbon Dioxide 21 mEq/L (19-29); Chloride 104 mEq/L (98-109); Eosinophils # 0.2 K/mcL (0.0-0.6); Eosinophils % 2.4 %; Glucose 117 mg/dL (70-99); Hematocrit 40.5 % (37.5-50.1); Hemoglobin 13.4 g/dL (12.9-16.9); Immature Granulocytes % 0.5 % (0-4); Lymphocytes # 2.4 K/mcL (0.6-4.6); Lymphocytes % 23.2 %; Magnesium 1.8 mg/dL (1.6-2.6); Mean Corpuscular HGB Conc 33.1 g/dL (31.6-35.5); Mean Corpuscular Hemoglobin 26.5 pg (28.0-33.3); Mean Corpuscular Volume 80.2 fL (83.0-100.0); Mean Platelet Volume 10.9 fL (9.4-12.4); Monocytes % 9.8 %; Neutrophils # 6.5 K/mcL (1.6-8.9); Osmolality,Calculated 289 (280-300); Platelet Count 270 K/mcL (140-400); Potassium 3.8 mEq/L (3.5-4.5); Red Blood Count 5.05 M/mcL (4.19-5.50); Segmented Neutrophils % 63.7 %; Sodium 136 mEq/L (136-145); eGFR For African Americans > 60 (> 60); eGFR For Non-African Americans 54 (> 60)
[2017-06-11] MEDS: APIXABAN 5 MG TABLET PO SCH (07:36)
[2017-06-11] MEDS: Aspirin 81 MG TAB.CHEW PO SCH (07:36)
[2017-06-11] MEDS: Fenofibrate 54 MG TABLET PO SCH (07:36)
[2017-06-11] MEDS ORDERED: Diltiazem CD (24hr) 240 MG CAPSULE PO SCH (09:00)
[2017-06-11] MEDS: Pantoprazole 40 MG VIAL IVP SCH (09:46)
--- NOTE | 2017-06-11 09:57 | Event Note ---
Date of Encounter: 06/11/17 Time of Encounter: 09:55 - Cardiology Event Note Pt remains in A-Flutter, rate controlled on IV Cardizem 10mg/hr. Transition to PO. Has received 4 doses of increased Rythmol dose 225mg Q9pdtyb. Plan for DCCV today. R/B/A discussed and pt agrees. No ROHAN warranted, has not missed any Eliquis doses in past 30 days. Obtain EKG for QRS monitoring. If DCCV is successful, okay to d/c home later today with outpt follow-up.
[2017-06-11] MEDS ORDERED: 0.9 % Sodium Chloride 1,000 ML IVC SCH (10:45)
[2017-06-11] MEDS ORDERED: 0.9 % Sodium Chloride 1,000 ML ONE (10:46)
[2017-06-11] MEDS ORDERED: 0.9 % Sodium Chloride 500 ML IVC ONE (10:47)
[2017-06-11] MEDS: *HR* FentaNYL (PF) 100 MCG/2 ML VIAL IVP PRN ×2 (11:30→11:35)
[2017-06-11] MEDS: *HR* Midazolam HCl 5 MG/5 ML VIAL IVP PRN ×2 (11:30→11:35)
--- NOTE | 2017-06-11 12:56 | Event Note ---
Date of Encounter: 06/11/17 Time of Encounter: 12:55 - Cardiology Event Note S/P Successful DCCV--1 shock at 200J. Currently SR, HR 70s. EKGs reviewed. Baseline QRS 121ms. Current EKG QRS 129ms, stable. Off Cardizem gtt and on PO Cardizem CD 240mg daily and Rythmol 225mg TID. Cardiology signing off. Reconsult PRN. Follow-up is already scheduled 06/[address] Damon Oneal. Pt can be discharge home today from a cardiac standpoint.
[2017-06-11 16:04] VITALS: BP 105/63
--- NOTE | 2017-06-11 17:57 | Discharge Summary ---
Date of Encounter: 06/11/17 Time of Encounter: 17:00 - Discharge Diagnosis (1) Atrial flutter with rapid ventricular response Priority: Primary Status: Acute (2) Elevated troponin Priority: Secondary Status: Acute (3) Prostate cancer Priority: Secondary Status: Resolved (4) HLD (hyperlipidemia) Priority: Secondary Status: Chronic Qualifiers: Hyperlipidemia type: pure hypercholesterolemia Qualified Code(s): E78.00 - Pure hypercholesterolemia, unspecified; E78.0 - Pure hypercholesterolemia (5) HTN (hypertension) Priority: Secondary Status: Chronic Qualifiers: Hypertension type: essential hypertension Qualified Code(s): I10 - Essential (primary) hypertension (6) DVT prophylaxis Priority: Secondary Status: Acute - Discharge Medications Prescriptions: Propafenone [Rhythmol] 225 mg PO Q8H #60 tablet Home Medications: Apixaban [Eliquis] 5 mg PO BID 04/11/16 [History] Atorvastatin [Lipitor] 40 mg PO DAILY 04/11/16 [History] Fenofibrate [Lofibra] 160 mg PO DAILY 04/11/16 [History] Cowley-3/Dha/Epa/Fish Oil [Fish Oil 1,000 mg Softgel] 1 each PO DAILY 04/11/16 [ History] Diltiazem HCl [Diltiazem 24Hr Cd] 240 mg PO DAILY 05/23/16 [History] Aspirin 81 mg PO DAILY 03/03/17 [History] Lisinopril/Hydrochlorothiazide [Zestoretic 20-25 mg Tablet] 1 each PO DAILY 09/07 [History] Propafenone [Rhythmol] 225 mg PO Q8H #60 tablet 06/11/17 [Rx] Allergies/Adverse Reactions: 3 Allergy/AdvReac Type Severity Reaction Status Date / Time No Known Allergies Allergy Verified 06/09/17 11:14 Procedures/tests Complete & Pending: Procedures Performed prior 72 hours Category Date Time Status EV cardioversion Routine Y 06/11/17 08:30 Completed Date of admission: 06/10/17 13:14 Primary care physician: Mehreen Beltran Discharging clinician: Swathi Key Anticipated date of discharge: 06/11/17 - Patient Status Disposition: Home, Self-Care Condition: Good Functional capacity at discharge: independent ambulation Overall status at discharge: patient is back to baseline - Discharge Instructions Follow Up With: Damon Oneal MD [Partnered Physician] - 06/24/17 9:15 am Joe Garrison DO [Primary Care Provider] - 06/19/17 1:30 pm - Diet and Activity Activity: increase activity as tolerated Diet: low fat, low cholesterol, low salt diet Interval History: HPI: Mr. Combs is a 67 year old male with medical history of atrial fibrillation, prostate cancer which is resolved, hyperlipidemia, and hypertension reports from the ED with chief complaint of atrial fibrillation and arrhythmia with palpitations. Patient has previous history of atrial fibrillation and reports ablation roughly [address] Oneal. Patient denies chest pain or shortness of breath, or prior history of CAD, AL, DVT, or PE. Patient reports he is been compliant with all his medications. Patient also denies abdominal pain, nausea, vomiting, shortness of breath, recent illness, fever, chills, changes in vision, lightheadedness, or dizziness. Mr. Combs denies ever smoking. Patient currently takes Eliquis for anticoagulation and Rythmol for rate control. On admission today, patient's vital signs include temperature of 97.7F, heart rate of 142 bpm, respiratory rate of 20, BP of 125/88, and SPO2 97% on room air. On examination, patient is currently in atrial fibrillation with RVR, lungs are clear on auscultation bilaterally, there is no pedal edema present. Patient currently denies chest pain or shortness of breath. Single view CXR today shows no acute cardiopulmonary process. Patient recently had ROHAN and nuclear stress test performed prior to ablation. Patient reports history of 2 ablations with one being in January or February and the other one last week. Patient is currently hemodynamically stable and reports no acute distress. Information taken from patient, family, chart review, and previous medical records and imaging. Mr. Combs is at high risk for cardiac event based on current symptoms, history of atrial fibrillation, and risk factors and will be placed inpatient status. Hospital course: Mr. Combs is a 67 year old male admitted her for A flutter RVR, he was placed on cardiac monitoring and Cardizem drip. Cardiology consult was called and the saw patient. He was tried medication rhythm control but failed to convert to sinus rhythm. He had DCCV today. His heart rate convert to sinus after procedure. Cardiology cleared patient to be discharged. Patient will discharge home, prescription written per cardiology recommendation. Patient will follow-up with cardiology as outpatient. I saw and examined the patient. He is awake alert, oriented 3. Denies palpitation, chest pain, or shortness of breath. Heart rate remains sinus rhythm. Vitals are stable. Patient is stable to discharge home and follow-up with cardiology as outpatient - Time Spent with Patient Total time spent providing and/or coordinating discharge services: 25 minutes - Constitutional Vitals: Temp Pulse Resp BP Pulse Ox 97.7 F 72 16 105/63 97 06/11/17 16:02 06/11/17 16:02 06/11/17 16:02 06/11/17 16:02 06/11/17 16:02 General appearance: Present: cooperative, disheveled, A&O X 3, pleasant, no acute distress, obese, answers questions appropriately - Head Head exam: Present: atraumatic, normocephalic - Eye Eye exam: Present: PERRL, conjuntiva pink, sclera anicteric Pupils: Present: PERRL - Neck Neck exam general surgery: Present: supple, trachea midline. Absent: lymphadenopathy - Respiratory Respiratory exam: Present: CTAB. Absent: accessory muscle use, rales, rhonchi, wheezes - Cardiovascular Cardiovascular exam: Present: RRR, +S1, +S2. Absent: diastolic murmur, gallop, rubs, systolic murmur - GI/Abdominal GI/Abdominal exam: Present: normal bowel sounds, soft, no peritoneal signs. Absent: distended, tenderness - Extremities Exam Extremities exam: Present: warm, radial pulses palpable and symmetrical. Absent : calf tenderness, cyanotic, pedal edema - Neurological Exam Neurological exam: Present: CN II-XII intact, oriented X3, no focal deficits. Absent: pronater drift, facial droop, speech deficit - Skin Skin exam: Present: dry, intact
--- NOTE | 2017-06-12 08:09 | Electrocardiograph Report ---
[place] [id number] Test Date: 2017-06-11 Pat Name: Osmany Combs Department: 106 Room: 2NE35 Gender: M [employer]: CC : 1950 Requested By: Kymberly Brooks Order Number: [id number] Reading MD: Miguel Angel Rodriguez MD Measurements Intervals [place] Rate: 70 P: 38 ME: 187 QRS: -43 QRSD: 128 T: 46 QT: 424 QTc: 445 Interpretive Statements SINUS RHYTHM MARKED LEFT AXIS DEVIATION MODERATE INTRAVENTRICULAR CONDUCTION DELAY Electronically Signed On 06-12-2017 6:45:55 EDT by Miguel Angel Rodriguez MD
== END 2017-06-11 18:25 | disposition home or self-care (01) | DRG 309 ==
LOC: EMEROO 11:10 → 2NENU 11:10
PROVIDERS: ADMIT Internal Medicine; ATTEND Internal Medicine